=== PATIENT | male | born 1975 | race Caucasian/White ===

== ENCOUNTER 2019-11-24 05:08 | Emergency (ER) | payer OTHER ==
[~2019-11-24] VITALS: Ht 172.7 cm; Wt 81.6 kg
[2019-11-24 05:10] VITALS: BP 146/87
--- NOTE | 2019-11-24 05:17 | NUR ---
PT IN WHEELCHAIR TO ER BED 07
[2019-11-24] MEDS ORDERED: LIDOCAINE/EPI 1% 1:100000 20 ML VIAL INJ ONE (05:30)
[2019-11-24] MEDS ORDERED: BACITRACIN OINT 500 UNITS/GM PKT TP ONE (05:30)
--- NOTE | 2019-11-24 05:35 | NUR ---
PT WAS GETTING OUT OF THE SHOWER THIS MORNING AT 3AM, SLIPPED AND HIT HIS RIGHT EYEBROW ON THE SLIDING GLASS DOOR OF THE SHOWER CAUSING A LAC. NO LOC, DENIES HEADACHE, NO DIZZINESS. PT SAYS HE WENT TO BED AFTER AND WHEN HE WOKE UP HE WAS STILL BLEEDING. SMALL AMOUNT OF BLEEDING NOTED, APPROX 2CM LAC. BED IN LOWEST POSITION AND SIDERAIL UP X 1. LAST TETANUS WAS WITHIN THE LAST 5 YRS, PER PT NKA NO HX
--- NOTE | 2019-11-24 05:35 | NUR ---
MD RUTHERFORD AT BEDSIDE. SUTURE SET UP AT BEDSIDE ALONG WITH KIEL.
--- NOTE | 2019-11-24 05:53 | NUR ---
Patient has a 2 cm laceration to RIGHT EYEBROW. Dr. RUTHERFORD applied sutures using sterile technique. Edges well approximated. Site cleansed with BETADINE. No bleeding noted. Pt tolerated well.
[2019-11-24 05:54] VITALS: BP 146/87
--- NOTE | 2019-11-24 05:55 | NUR ---
Patient discharged with v/s stable. Written and verbal after care instructions given and explained. Patient verbalized understanding. Ambulatory with steady gait. All questions addressed prior to discharge. Advised to follow up with PMD.
== END 2019-11-24 05:55 | disposition home or self-care (01) ==
LOC: MED 05:08
DX: S01.111A Laceration without foreign body of right eyelid and periocular area, initial encounter (principal); W45.8XXA Other foreign body or object entering through skin, initial encounter; Y93.89 Activity, other specified; Y92.89 Other specified places as the place of occurrence of the external cause; Y99.8 Other external cause status
CPT/HCPCS: 12011; 99282; J2001

== ENCOUNTER 2019-11-30 01:30 | Emergency (ER) | payer OTHER ==
[~2019-11-30] VITALS: Ht 172.7 cm; Wt 85.7 kg
[2019-11-30 01:52] VITALS: BP 159/103
--- NOTE | 2019-11-30 02:12 | NUR ---
44 Y/O MALE STATES HE HAD 8 STICHES PLACED ON R EYEBROW 5 DAYS AGO IN [facility]. PT WAS TOLD TO COME BACK IN 5 DAYS FOR REMOVAL. PT STATES THE AREA "WOULD NOT STOP BLEEDING" AFTER THE SUTURE PLACEMENT AND "SCABBED OVER" NO BLEEDING NOTED. SCABS ON R EYE BROW. CAP REFILL LESS THAN 2 SECONDS. SKIN WARM AND DRY. NKA MED HX DENIES NO RX
[2019-11-30] MEDS ORDERED: HYDROXYZINE HYDROCHLORIDE 25 MG TAB PO PRN (02:20)
--- NOTE | 2019-11-30 02:34 | NUR ---
ERMD AT BEDSIDE EVALUATING PT
[2019-11-30 02:57] VITALS: BP 159/103
--- NOTE | 2019-11-30 02:57 | NUR ---
Patient discharged with v/s stable. Written and verbal after care instructions given and explained. Patient verbalized understanding. Ambulatory with steady gait. ID Band Removed. All questions addressed prior to discharge. Advised to follow up with PMD.
== END 2019-11-30 02:57 | disposition home or self-care (01) ==
LOC: MED 01:30
DX: S01.111D Laceration without foreign body of right eyelid and periocular area, subsequent encounter (principal); X58.XXXD Exposure to other specified factors, subsequent encounter
CPT/HCPCS: 99281

== ENCOUNTER 2019-12-02 01:15 | Emergency (ER) | payer OTHER ==
[~2019-12-02] VITALS: Ht 172.7 cm; Wt 86.6 kg
[2019-12-02 01:17] VITALS: BP 158/98
--- NOTE | 2019-12-02 01:24 | NUR ---
PT AMBUALTED TO BED 11 WITH STEADY GAIT.
--- NOTE | 2019-12-02 01:28 | NUR ---
PT 44 Y/O MALE BIB SELF FOR C/O SUTURE REMOVAL IN R EYEBROW. PT DENIES PAIN AT SITE. NO BLEEDING OR DRAINAGE NOTED. SKIN AROUND SITE HAS NO REDNESS OR EDEMA. VSS - SEE COMPLTE ASSESSMENT OR MORE INFORMATION. MEDHX: PT DENIES ALLERGIES: NKA
--- NOTE | 2019-12-02 01:40 | NUR ---
ERMD BEDSIDE EVALUATING PT
[2019-12-02] MEDS ORDERED: BACITRACIN OINT 500 UNITS/GM PKT TP ONE ×2 (01:50→01:56)
--- NOTE | 2019-12-02 01:50 | NUR ---
SUTURES REMOVED BY ERMD. WOUND CLEANED AND PAT DRY. NO BLEEDING NOTED. BACITRACIN OINTMENT PLACED ON WOUND. DRESSING PLACED.
[2019-12-02 02:00] VITALS: BP 147/86
== END 2019-12-02 02:00 | disposition home or self-care (01) ==
LOC: MED 01:15
DX: S01.111D Laceration without foreign body of right eyelid and periocular area, subsequent encounter (principal); X58.XXXD Exposure to other specified factors, subsequent encounter
CPT/HCPCS: 99282

== ENCOUNTER 2020-07-11 20:47 | Emergency (ER) | payer OTHER ==
[~2020-07-11] VITALS: Ht 172.7 cm; Wt 83.9 kg
[2020-07-11 20:56] VITALS: BP 148/98
--- NOTE | 2020-07-11 21:02 | NUR ---
PT AMBULATED TO [facility], STEADY GAIT
--- NOTE | 2020-07-11 21:07 | NUR ---
PT TAKEN TO XRAY VIA W/C
--- NOTE | 2020-07-11 21:30 | NUR ---
ERMD AT BEDSIDE EVALUATING PATIENT.
--- NOTE | 2020-07-11 21:30 | NUR ---
SEE COMEPLTE ASSESSMENT FOR FUTHER DETAILS.
[2020-07-11 21:50] VITALS: BP 125/88
== END 2020-07-11 21:50 | disposition home or self-care (01) ==
LOC: MED 20:47
DX: S63.92XA Sprain of unspecified part of left wrist and hand, initial encounter (principal); X50.0XXA Overexertion from strenuous movement or load, initial encounter; Y93.89 Activity, other specified; Y92.89 Other specified places as the place of occurrence of the external cause; Y99.8 Other external cause status
CPT/HCPCS: 73130; 99283

== ENCOUNTER 2021-03-20 07:13 | Emergency (ER) | payer OTHER ==
[~2021-03-20] VITALS: Ht 172.7 cm; Wt 89.4 kg
[2021-03-20 07:47] VITALS: BP 147/87
[2021-03-20] MEDS ORDERED: ACET-10509 PO (09:14)
[2021-03-20] MEDS ORDERED: IBUP-2213 PO (09:14)
--- NOTE | 2021-03-20 09:44 | NUR ---
Patient discharged with v/s stable. Written and verbal after care instructions given and explained. Patient alert, oriented and verbalized understanding of instructions. Ambulatory with steady gait. All questions addressed prior to discharge. ID band removed. Patient advised to follow up with PMD. Rx of IBUPROFEN AND TYLENOL given. Patient educated on indication of medication including possible reaction and side effects. Opportunity to ask questions provided and answered.
== END 2021-03-20 07:30 | disposition home or self-care (01) ==
LOC: MED 07:13
DX: S80.02XA Contusion of left knee, initial encounter (principal); Z79.899 Other long term (current) drug therapy; W23.0XXA Caught, crushed, jammed, or pinched between moving objects, initial encounter; Y93.89 Activity, other specified; Y92.89 Other specified places as the place of occurrence of the external cause; Y99.8 Other external cause status
CPT/HCPCS: 73562; 99283

== ENCOUNTER 2021-11-09 02:25 | Emergency (ER) | payer OTHER ==
[~2021-11-09] VITALS: Ht 172.7 cm; Wt 81.6 kg
[~2021-11-09 02:25] MED LIST: ACET-10509 PO; IBUP-2213 PO
[2021-11-09 02:30] VITALS: BP 170/90
--- NOTE | 2021-11-09 02:30 | NUR ---
TO BED VIA WHEELCHAIR
--- NOTE | 2021-11-09 02:41 | NUR ---
Dr. Davenport examining patient.
[2021-11-09] MEDS ORDERED: MIDAZOLAM 2 MG/2 ML VIAL IM ONE (02:50)
--- NOTE | 2021-11-09 03:04 | NUR ---
Patient taken to x-ray via wheel chair.
[2021-11-09] MEDS ORDERED: XYLGEL PO (03:51)
[2021-11-09 04:09] VITALS: BP 135/72
--- NOTE | 2021-11-09 04:09 | NUR ---
Patient discharged with v/s stable. Written and verbal after care instructions given and explained. Patient verbalized understanding. Wheel Chair Assisted with to car. All questions addressed prior to discharge. Advised to follow up with PMD.
== END 2021-11-09 04:09 | disposition home or self-care (01) ==
LOC: MED 02:25
DX: R13.10 Dysphagia, unspecified (principal)
CPT/HCPCS: 70360; 96372; 99283; J2250